=== PATIENT | male | born 1975 ===

== ENCOUNTER 2025-09-21 06:32 | Day surgery (SDC) | payer BC, SELFPAY ==
[2025-09-14 13:52] VITALS: BMI 22.8
--- NOTE | 2025-09-21 08:13 | HP.FOC2 ---
Focused History & Physical
Chief Complaint
HPI:
Chief Complaint: Recurrent left inguinal hernia
HPI / Indication for Planned Procedure: Patient is a 50-year-old male recently seen in outpatient surgical evaluation secondary to visible swelling and asymmetry in the left inguinal region. Physical examination confirmed the presence of a
reducible left inguinal hernia. He has previously undergone open left inguinal herniorrhaphy as a child in first grade. There are no symptoms in the right inguinal region.
Relevant Past Medical History: Negative
Relevant Social History: Negative
Relevant Family History: Negative
Relevant Past Surgical History: Positive for (Left inguinal hernia pair, ACL repair with patellar reconstruction, right hand tendon reconstruction, left eardrum repair)
Review of Systems
Review of Pertinent Systems: All Systems Negative
Medication
See Medication form for detailed medications: Yes
Medication List (including Herbals & OTC):
No Meds [No Current Medications] 09/15/25
Medications Reviewed: Yes
Allergies and Reactions
Patient has Allergies: No
Noted Allergies and Reactions:
Allergy/AdvReac Type Severity Reaction Status Date / Time
No Known Allergies Allergy Unverified 09/15/25 15:01
Pertinent Physical Exam
All Other Systems: Negative
Head/Neck: Normal
Lungs: Normal
Heart: Normal
Abdomen: Other (Reducible left inguinal hernia)
Extremities: Normal
Neurological: Normal
Diagnosis / Assessment
50-year-old male presenting for scheduled operative correction symptomatic left inguinal hernia
Plan / Procedure
Robotic assisted laparoscopic left inguinal hernia repair with mesh
Anesthesia/Sedation to be done by Anesthesia Provider: Yes
--- NOTE | 2025-09-21 08:15 | W.SUR.PREOP ---
Pre-Operative Surgical Note
-
I have examined this patient prior to the performance of the scheduled procedure.
The patient's condition is unchanged from the time of the current History and
Physical and the patient is able to undergo the scheduled procedure.
[2025-09-21 09:03] VITALS: BMI 22.2
[2025-09-21 09:07] VITALS: BMI 22.2
[2025-09-21 09:08] VITALS: BP 141/98
[2025-09-21] MEDS: TYLENOL 1000 MG PO (09:15)
[2025-09-21] MEDS: NORMOSOL-R/PLASMALYTE-A 1000 IV (09:15)
--- NOTE | 2025-09-21 11:51 | W.IMMPOSTOP ---
Addendum entered and electronically signed by Jasper Trejo MD 09/21/25 12:45:
#[id number]
Original Note:
Surgical Immed Post Op Note
-
Primary Surgeon: Jasper Trejo MD
Assisting Surgeon: Joie Enriquez PA-C
Pre-op Diagnosis: Left inguinal hernia
Post-op Diagnosis: Left inguinal hernia; direct
Procedure Performed: Robotic assisted laparoscopic NEREIDA repair left inguinal hernia with mesh; 3D max large mid weight
Anesthesia Type: GETA +0.25% Marcaine with epinephrine
Specimen / Cultures: None
Estimated Blood Loss: 4 mL
Complications: None immediate
Operative Findings: Left direct inguinal hernia. Indirect and femoral space normal. No lipoma of spermatic cord/inguinal canal noted. 3D max large mid weight mesh repair. Mesh secured to Nehemias's ligament with 2-0 Vicryl stitch x 2. Peritoneal
flap closed with 2-0 Monocryl STRATAFIX spiral.
Right inguinal region appeared unremarkable. No additional incidental findings.
The assistance of Joie Enriquez PA-C was required due to the complexity of the procedure. During the procedure Joie Enriquez PA-C assisted with port placement, robotic instrumentation and suture material exchanges, and closure of the surgical incision
sites. I was present for the entirety of the operative procedure.
[2025-09-21 12:00] VITALS: BP 124/73; BP 141/98
[2025-09-21 12:15] VITALS: BP 124/72
[2025-09-21 12:19] VITALS: BP 127/70
[2025-09-21 12:20] VITALS: BP 127/70
[2025-09-21 12:35] VITALS: BP 126/68
== END 2025-09-21 13:20 | disposition home or self-care (01) ==
LOC: SDS 06:32
PROVIDERS: ATTENDING PHYSICIAN Surgery
DX: K40.91 Unilateral inguinal hernia, without obstruction or gangrene, recurrent (principal)
CPT/HCPCS: 49651; 36415; 93005